=== PATIENT | female | born 1940 | race Caucasian/White ===

== ENCOUNTER 2019-10-04 08:27 | Day surgery (SDC) | payer OTHER ==
[~2019-10-04 08:27] MED LIST: GARL500C2 PO; INTESTINAL FORMULA PO; MULT-1203 PO; OMEG-178 PO; SODIUM CHLORIDE 0.9% 1000ML 1,000 ML IV ONE; [UNRECOGNIZED DRUG - OTHER] PO
[2019-10-04 08:50] VITALS: BP 127/73
[2019-10-04] MEDS ORDERED: PROPOFOL 10 MG/ML 20ML VIAL IV ONE (09:17)
[2019-10-04] MEDS ORDERED: EPHEDRINE SULFATE 50 MG/ML AMPULE ONE (09:38)
[2019-10-04 09:44] VITALS: BP 127/63
[2019-10-04 09:50] VITALS: BP 118/57
[2019-10-04 09:55] VITALS: BP 125/76
[2019-10-04 10:00] VITALS: BP 119/75
[2019-10-04 10:10] VITALS: BP 127/71
== END 2019-10-04 10:30 | disposition home or self-care (01) ==
LOC: ENDO 08:27
PROVIDERS: ATTEND Internal Medicine Gastroenterology
DX: R93.3 Abnormal findings on diagnostic imaging of other parts of digestive tract (principal); K22.2 Esophageal obstruction; K85.80 Other acute pancreatitis without necrosis or infection; E78.49 Other hyperlipidemia; Z79.899 Other long term (current) drug therapy
CPT/HCPCS: 43237; 43248; A4215; A4221; A4222; A4223; A4606; A4620; A4663; J2704; J3490; J7030